=== PATIENT | female | born 1960 | race Caucasian/White ===

== ENCOUNTER 2018-01-03 09:34 | Outpatient (CLI) | payer OTHER ==
[2018-01-03 10:33] LABS: #Basophils 0.1 thou/uL (0.0-0.2); #Eosinphils 0.2 thou/uL (0.0-0.7); #Lymphocytes 2.3 thou/uL (1.20-3.40); #Monocytes 0.6 thou/uL (0.11-0.59); %Basophils 0.6 % (0.0-1.0); %Lymphocytes 27.8 % (21.0-51.0); %Monocytes 7.4 % (0.0-10.0); %Neutrophils 61.1 % (42.0-75.0); Mean Corpuscular HGB CONC 33.9 g/dL (32.0-36.0); Mean Corpuscular Hemoglobin 32.1 pg (27.0-31.0); Mean Corpuscular Volume 94.5 fl (81.0-99.0); Mean Platelet Volume 7.4 fL (7.4-10.4); Platelet Count 330 thou/uL (130-400); RBC Distribution Width 11.7 % (11.5-14.5); Red Blood Cell (RBC) Count 4.67 mill/uL (4.20-5.40); White Blood Cell (WBC) Count 8.2 thou/uL (4.8-10.8)
[2018-01-03 10:49] LABS: Anion Gap 12 mmol/L (10-20); BUN (Urea Nitrogen) 13 mg/dL (9.8-20.1); Calc. Creatinine Clearance 0 mL/min (70-130); Calcium 9.4 mg/dL (7.8-10.44); Carbon Dioxide 26 mmol/L (22-29); Chloride 103 mmol/L (98-107); Estimated GFR-MDRD 79; Glucose 100 mg/dL (70-105); Potassium 4.3 mmol/L (3.5-5.1); Sodium 137 mmol/L (136-145)
== END 2018-01-03 09:35 | disposition home or self-care (01) ==
LOC: LABBT 09:34
PROVIDERS: ATTEND Surgery
DX: Z01.812 Encounter for preprocedural laboratory examination (principal); C43.61 Malignant melanoma of right upper limb, including shoulder
CPT/HCPCS: 80048; 85025

== ENCOUNTER → 2018-01-05 | Day surgery (SDC) | payer OTHER ==
[2018-01-03 09:56] VITALS: BMI 26.9
[~2018-01-05] MED LIST: Bacitracin Zinc Ointment 30 gm TUBE ONE; Bupivacaine/Epinephrine 0.25% 30 ML VIAL ONE; CEFAZOLIN/Water 2 GM/20 ML SYRINGE ONE; Fentanyl 100 MCG/2 ML VIAL ONE; Ketorolac Tromethamine 30 MG/ML VIAL ONE; Lidocaine 2% 10 ML INJ ONE; Lidocaine 2% Jelly 5 ML TUBE ONE; PROPOFOL 200 MG/20 ML VIAL ONE; Propofol 500 MG/50 ML VIAL ONE
--- NOTE | 2018-01-08 05:09 | PDOC.OP ---
Operative Note - Operative Note Operative Note: PROCEDURE: Wide local excision of right upper arm melanoma DATE OF PROCEDURE: 01/05/2018 SURGEON: Bettie Leon M.D. 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 Her primary care doctor biopsied this and it was found to be a superficial spreading malignant melanoma with 0.3 mm thickness and no ulceration. Clinical examination was negative for lymphadenopathy. Wide local excision was recommended. PROCEDURE IN DETAIL: After informed consent was obtained and appropriate preoperative antibiotics were administered the patient was taken to the operating room where she was placed in the supine position and monitored anesthesia care was administered. She was prepped and draped in the standard sterile fashion and local anesthesia infused circumferentially for a field block. 1 cm margins were marked in all directions and a longitudinal elliptical incision planned to allow closure with good aesthetics. The specimen measured 3 x 6 cm. The skin was incised along the marked incision and dissection carried down to the fascia. The specimen was excised off of the underlying muscle and marked with a long posterior and short superior suture. Flaps were created between the subcutaneous tissues and the muscle medially and laterally to allow primary closure following which the skin was able to be reapproximated. The wound was closed in layers with absorbable [id number] subcutaneous sutures and interrupted vertical mattress nylon skin sutures. Antibiotic when it was placed to the incision and a gauze and Tegaderm dressing was placed. Estimated blood loss was minimal. There were no complications. Specimen is wide local excision of right upper arm melanoma.
== END ==
LOC: SDC 07:29
PROVIDERS: ATTEND Surgery
PROC: 0HBDXZZ Excision of Right Lower Arm Skin, External Approach (ICD-10-PCS; principal; 2018-01-05)
DX: C43.61 Malignant melanoma of right upper limb, including shoulder (principal); E78.00 Pure hypercholesterolemia, unspecified; E78.5 Hyperlipidemia, unspecified; F41.9 Anxiety disorder, unspecified; Z79.2 Long term (current) use of antibiotics; Z79.899 Other long term (current) drug therapy
CPT/HCPCS: 88305; 88342; J0131; J1885; J2704; J3010

== ENCOUNTER 2019-04-13 13:34 | Emergency (ER) | payer OTHER ==
[~2019-04-13 13:34] MED LIST changes: -Bacitracin Zinc Ointment 30 gm TUBE ONE; -Bupivacaine/Epinephrine 0.25% 30 ML VIAL ONE; -CEFAZOLIN/Water 2 GM/20 ML SYRINGE ONE; -Fentanyl 100 MCG/2 ML VIAL ONE; +ISOVUE-370 76%-LOCM 1 ML ONE; -Ketorolac Tromethamine 30 MG/ML VIAL ONE; -Lidocaine 2% 10 ML INJ ONE; -Lidocaine 2% Jelly 5 ML TUBE ONE; -PROPOFOL 200 MG/20 ML VIAL ONE; -Propofol 500 MG/50 ML VIAL ONE
--- NOTE | 2019-04-13 14:10 | RAD ---
FRONTAL RADIOGRAPH CHEST: Date: 04/13/19 COMPARISON: None. HISTORY: Chest pain. FINDINGS: No pneumothorax, pleural fluid, focal consolidation, or alveolar edema. Heart and mediastinal contour s appear within normal limits. IMPRESSION: No acute findings. POS: OFF
[2019-04-13 15:22] LABS: #Basophils 0.1 thou/uL (0.0-0.2); #Eosinphils 0.1 thou/uL (0.0-0.7); #Lymphocytes 1.6 thou/uL (1.20-3.40); #Monocytes 0.9 thou/uL (0.11-0.59); #Neutrophils 14.1 thou/uL (1.40-6.50); %Basophils 0.4 % (0.0-1.0); %Eosinophils 0.7 % (0.0-10.0); %Lymphocytes 9.6 % (21.0-51.0); %Monocytes 5.2 % (0.0-10.0); %Neutrophils 84.2 % (42.0-75.0); Hemoglobin 14.5 g/dL (12.0-16.0); Mean Corpuscular HGB CONC 34.5 g/dL (32.0-36.0); Mean Corpuscular Hemoglobin 32.1 pg (27.0-31.0); Mean Corpuscular Volume 93.1 fL (78.0-98.0); Mean Platelet Volume 8.1 fL (7.4-10.4); Platelet Count 301 thou/uL (130-400); RBC Distribution Width 11.7 % (11.5-14.5); Red Blood Cell (RBC) Count 4.51 mill/uL (4.20-5.40); White Blood Cell (WBC) Count 16.7 thou/uL (4.8-10.8)
[2019-04-13 15:42] LABS: ALT (SGPT) 21 U/L (8-55); AST (SGOT) 27 U/L (5-34); Albumin 4.7 g/dL (3.5-5.0); Alkaline Phosphatase 84 U/L (40-150); Anion Gap 15 mmol/L (10-20); BUN (Urea Nitrogen) 13 mg/dL (9.8-20.1); Bilirubin, Total 0.5 mg/dL (0.2-1.2); CK (CPK) 48 U/L (29-168); Calc. Creatinine Clearance 0 mL/min (70-130); Calcium 9.8 mg/dL (7.8-10.44); Carbon Dioxide 23 mmol/L (22-29); Chloride 103 mmol/L (98-107); Estimated GFR-MDRD 73; Globulin 2.8 g/dL (2.4-3.5); Glucose 100 mg/dL (70-105); Protein, Total 7.5 g/dL (6.0-8.3); Sodium 137 mmol/L (136-145)
--- NOTE | 2019-04-13 16:27 | CT ---
CT CHEST WITH IV CONTRAST AND 3D POSTPROCESSING CT ABDOMEN WITH IV CONRAST AND 3D POSTPROCESSIN04/13/19 HISTORY: Chest pain, diaphoresis. Near syncope. FINDINGS: There is good contrast opacification of the thoracoabdominal aorta without aneurysm or dissection. An aberrant right subclavian artery is present. There is good flow in the celiac axis, SMA, MALIK, and adam th renal arteries. No pleural or pericardial effusions are seen. No pneumothoraces, focal areas of consolidation, or lorie g masses are identified. There is a 6 mm nodule at the left lung base laterally. Calcified gallstones are present. The liver, spleen, pancreas, adrenal glands and kidneys are grossly unremarkable. No free air or free fluid is seen in the abdomen. There are degenerative changes in the thoracolumbar spine. Bilateral breast implants are present. IMPRESSION: 1. No CT evidence of aortic aneurysm or dissection. 2. Cholelithiasis. 3. 6 mm left basilar lung nodule. A follow-up CT scan of the chest is recommended in six months. Code T Code LN POS: BRAVO
== END 2019-04-13 16:46 | disposition home or self-care (01) ==
LOC: ERS 13:34
DX: R07.9 Chest pain, unspecified (principal); R55 Syncope and collapse; E78.5 Hyperlipidemia, unspecified
CPT/HCPCS: 71045; 71275; 80053; 82550; 84484; 85025; 93005; 96360; Q9966

== ENCOUNTER 2019-05-13 08:36 | Day surgery (SDC) | payer OTHER ==
[2019-05-10 10:54] VITALS: BMI 26.7
--- NOTE | 2019-05-10 11:17 | HP ---
HISTORY OF PRESENT ILLNESS: Francine Nino is a 58-year-old female, 183 pounds, 5 feet 9 inches, blood pressure 146/68, heart rate 71, temperature 99 degrees, who presents with symptomatic right upper quadrant pain and ongoing right flank pain. She presented to the emergency room at [facility] on April 13. CAT scan of chest, abdomen, and pelvis revealing gallstones, normal bile duct caliber without dilatation, normal liver function tests and CBC. Her CBC and comprehensive metabolic profile on 04/23/2019 were normal, CPL. BUN 12, creatinine 0.67. Hemoglobin 14. Renal function normal. EKG normal. Plan is for laparoscopic video cholecystectomy as an outpatient. She understands risks and benefits and consents. Questions answered. ALLERGIES: NONE. SOCIAL HISTORY: Tobacco, none. She is retired. PAST SURGICAL HISTORY: Melanoma excision, right shoulder. Breast implants, hysterectomy without oophorectomy. PAST MEDICAL HISTORY: Noncontributory. REVIEW OF SYSTEMS: Ten-point noncontributory. PHYSICAL EXAMINATION: VITAL SIGNS: Weight 183 pounds, height 5 feet 9 inches, blood pressure 146/68, heart rate 71, temperature 99.1 degrees. HEAD, EARS, EYES, NOSE, AND THROAT: Unremarkable. LUNGS: Clear to auscultation. CARDIAC: Regular rhythm without murmur or gallop. ABDOMEN: Soft and nontender. No mass. EXTREMITIES: Unremarkable. ASSESSMENT/PLAN: 1. Symptomatic gallstones with right flank pain. Recommend laparoscopic video cholecystectomy. Risks and benefits of procedure discussed. She consents. 2. Encouraged colonoscopy. Job ID: [id number]
[2019-05-13] MEDS ORDERED: Ketorolac Tromethamine 30 MG/ML VIAL ONE (09:11)
[2019-05-13] MEDS ORDERED: Bupivacaine HCl 0.5%/Epinephrine 1:200,000/PF 30 ml Vial ONE (09:21)
[2019-05-13] MEDS ORDERED: Iothalamate Meglumine 60% 50 ML VIAL FS ONE (09:21)
[2019-05-13] MEDS ORDERED: Fentanyl 100 MCG/2 ML VIAL ONE (09:50)
[2019-05-13] MEDS ORDERED: SUGAMMADEX SODIUM 500 MG/5 ML VIAL ONE (09:51)
--- NOTE | 2019-05-13 11:10 | OP ---
DATE OF PROCEDURE: 05/13/2019 PREOPERATIVE DIAGNOSES: Cholecystitis, cholelithiasis. POSTOPERATIVE DIAGNOSES: Cholecystitis, cholelithiasis. PROCEDURE PERFORMED: Laparoscopic video cholecystectomy. ANESTHESIA: General, local 0.5% Marcaine with epinephrine 30 mL. DESCRIPTION OF PROCEDURE: The patient was taken to the operating room, where under general anesthesia, abdomen was prepared with ChloraPrep and draped in routine fashion. 0.5% Marcaine with epinephrine was infiltrated in the skin and subcutaneous tissue about all port sites. Total 30 mL volume used. Infraumbilical incision was made. Pneumoperitoneum to 15 mmHg was obtained with a Veress needle, replaced with a 5 port via the laparoscope inserted. Right subxiphoid incision was made and 11 port placed, right subcostal incision was made at midclavicular and anterior lines, and 5 port was placed. Liver appeared to be normal. Fundus of the gallbladder was grasped at cephalad. Infundibulum grasped and reflected laterally. Cystic artery and duct dissected free. Critical view obtained. Cystic artery and duct doubly clipped proximally, divided, gallbladder dissected free from the liver bed obtaining good hemostasis prior to division of the final peritoneal attachments. Gallbladder and contents were removed, submitted to Pathology with multiple stones. Hemostasis ensured with cautery. Irrigant and pneumoperitoneum evacuated. All the instruments removed and all skin incisions were approximated with interrupted subdermal 4-0 Monocryl and [place] glue applied. The patient tolerated the procedure well. Job ID: [id number]
[2019-05-13] MEDS ORDERED: traMADol HCl 50 MG TAB ONE (12:43)
[2019-05-13] MEDS ORDERED: Ondansetron PF 4 MG/2 ML Vial ONE (15:05)
[2019-05-13] MEDS ORDERED: Lidocaine 1% PF 5 ML VIAL ONE (15:05)
[2019-05-13] MEDS ORDERED: Dexamethasone 20 MG/5 ML VIAL ONE (15:05)
[2019-05-13] MEDS ORDERED: Metoclopramide HCl 10 MG/2 ML VIAL ONE (15:05)
[2019-05-13] MEDS ORDERED: PROPOFOL 200 MG/20 ML VIAL ONE (15:05)
[2019-05-13] MEDS ORDERED: Glycopyrrolate 0.2 MG/ML 5 ML SYRINGE ONE (15:05)
[2019-05-13] MEDS ORDERED: Rocuronium Bromide 10 MG/ML (10ML VIAL) ONE (15:05)
[2019-05-13] MEDS ORDERED: ePHEDrine 50 MG/ML VIAL ONE (15:05)
[2019-05-13] MEDS ORDERED: PHENYLEPHRINE-NS 100 MCG/ML 10 ML SYRINGE ONE (15:05)
== END 2019-05-13 13:05 | disposition home or self-care (01) ==
LOC: SDC 08:36
PROVIDERS: ATTEND Specialist
PROC: 0FT44ZZ Resection of Gallbladder, Percutaneous Endoscopic Approach (ICD-10-PCS; principal; 2019-05-13)
DX: K80.10 Calculus of gallbladder with chronic cholecystitis without obstruction (principal); Z91.048 Other nonmedicinal substance allergy status
CPT/HCPCS: 88304; J0131; J0670; J0690; J1100; J1610; J1885; J2001; J2405; J2704; J2765; J3010; J3490

== ENCOUNTER 2021-04-29 13:44 | Outpatient (CLI) | payer OTHER ==
[2021-04-29 14:52] LABS: #Basophils 0.1 10x3/uL (0.0-0.2); #Eosinphils 0.2 10x3/uL (0.0-0.5); #Monocytes 0.6 10x3/uL (0.0-1.1); #Neutrophils 6.2 10x3/uL (1.5-8.4); %Basophils 0.9 % (0.0-2.0); %Eosinophils 2.1 % (0.0-6.0); %Monocytes 6.3 % (0.0-10.0); %Neutrophils 68.5 % (40.0-75.0); Mean Corpuscular HGB CONC 33.4 g/dL (32.0-36.0); Mean Corpuscular Hemoglobin 31.2 pg (27.0-33.0); Mean Corpuscular Volume 93.3 fl (81.6-98.3); Mean Platelet Volume 10.4 fl (7.4-10.4); Platelet Count 341 10x3/uL (150-450); RBC Distribution Width 12.6 % (11.5-14.5); Red Blood Cell (RBC) Count 4.49 10x6/uL (3.90-5.03)
[2021-04-29 15:21] LABS: SARS-CoV-2 NAA Rapid Test Not Detected (NotDetected)
== END 2021-04-29 13:45 | disposition home or self-care (01) ==
LOC: LABBT 13:44
PROVIDERS: ATTEND Orthopaedic Surgery Hand Surgery
DX: Z01.812 Encounter for preprocedural laboratory examination (principal); S62.315A Displaced fracture of base of fourth metacarpal bone, left hand, initial encounter for closed fracture; S62.317A Displaced fracture of base of fifth metacarpal bone, left hand, initial encounter for closed fracture; Z20.822 Contact with and (suspected) exposure to COVID-19
CPT/HCPCS: 85025; U0002

== ENCOUNTER → 2021-04-30 | Day surgery (SDC) | payer OTHER ==
[2021-04-29 13:20] VITALS: BMI 28.0
[~2021-04-30] MED LIST changes: +Bacitracin Zinc Ointment 30 gm TUBE ONE; +Betamet Acet/Betamet Na Ph 30 MG/5 ML VIAL ONE; +Bupivacaine PF 0.5% 30 ML VIAL ONE; +Dexamethasone 20 MG/5 ML VIAL ONE; +Fentanyl 100 MCG/2 ML VIAL ONE; -ISOVUE-370 76%-LOCM 1 ML ONE; +Ketorolac Tromethamine 30 MG/ML VIAL ONE; +Lidocaine 1% PF 5 ML VIAL ONE; +Midazolam HCl 2 mg/2 ml Vial ONE; +Neomycin-Polymyxin 1 ML AMP ONE; +Ondansetron PF 4 MG/2 ML Vial ONE; +PHENYLEPHRINE-NS 100 MCG/ML 10 ML SYRINGE ONE; +PROPOFOL 200 MG/20 ML VIAL ONE; +Ropivacaine 0.5% HCl/PF (150 MG/30 ML VIAL) ONE; +ePHEDrine 50 MG/ML VIAL ONE
== END ==
LOC: SDC 09:09
PROVIDERS: ATTEND Orthopaedic Surgery Hand Surgery
PROC: 0PSV04Z Reposition Left Finger Phalanx with Internal Fixation Device, Open Approach (ICD-10-PCS; principal; 2021-04-30)
DX: S62.617A Displaced fracture of proximal phalanx of left little finger, initial encounter for closed fracture (principal); S62.615A Displaced fracture of proximal phalanx of left ring finger, initial encounter for closed fracture; Z91.048 Other nonmedicinal substance allergy status; Z01.812 Encounter for preprocedural laboratory examination; Z20.822 Contact with and (suspected) exposure to COVID-19; S62.315A Displaced fracture of base of fourth metacarpal bone, left hand, initial encounter for closed fracture; S62.317A Displaced fracture of base of fifth metacarpal bone, left hand, initial encounter for closed fracture
CPT/HCPCS: 76000; 85025; C1713; J0690; J0702; J1100; J1885; J2250; J2405; J2704; J2795; J3010; J3490; S0020; U0002